=== PATIENT | female | born 1990 | race American Indian/Alaskan Native ===

== ENCOUNTER 2016-08-09 08:31 | Emergency (ER) | payer SELFPAY ==
[2016-08-09 08:38] VITALS: BP 107/74
--- NOTE | 2016-08-09 09:07 | XRay Report ---
RIGHT ANKLE RADIOGRAPHS INDICATION: Pain, swelling. Status post fall. COMPARISON: None similar at this institution. FINDINGS: AP, lateral and oblique right ankle radiographs demonstrate intact mortise, malleoli and talar dome contour. Mild diffuse soft tissue swelling questioned on the frontal view versus related to patient's body habitus. Please correlate. CONCLUSION: No acute right ankle bony abnormality, as described. Thank you for the opportunity to participate in this patient's care.
[2016-08-09] MEDS ORDERED: NORCO 5/325 PO ONE (09:17)
--- NOTE | 2016-08-09 09:21 | Emergency Department Report ---
ED Extremity Problem HPI - General Chief complaint: Extremity Injury, Lower Stated complaint: RT ANKLE PAIN Time Seen by Provider: 08/09/16 09:05 Source: patient Mode of arrival: Wheelchair Limitations: Physical Limitation - History of Present Illness Initial comments: PT states yesterday she was getting off the bus and she slipped. PT states it was raining and she slipped off the last step. PT states she landed on her feet but her legs went the wrong way. PT states she can not move her R ankle. PT states she has been hopping on her left leg. PT rates her pain 7/10 and states she has not taken anything for her pain. MD Complaint: extremity pain, joint paint -: Sudden, days(s) (yesterday ) Location: right, lower extremity (ankle) History of Same: No Severity scale (0 -10): 7 Quality: sharp Consistency: constant Improves with: rest Worsens with: weight bearing, walking, palpation Associated Symptoms: denies other symptoms - Related Data Previous Rx's Medication Instructions Recorded Last Taken Type Acetaminophen/Codeine [Tylenol #3] 1 tab PO Q6H PRN #12 tab 08/09/16 Unknown Rx Ibuprofen [Motrin] 600 mg PO Q8H PRN #15 tablet 08/09/16 Unknown Rx Allergies Allergy/AdvReac Type Severity Reaction Status Date / Time No Known Allergies Allergy Unverified 08/09/16 08:32 ED Review of Systems ROS: Stated complaint: RT ANKLE PAIN Other details as noted in HPI Comment: All other systems reviewed and negative Constitutional: denies: chills, fever Cardiovascular: denies: chest pain Gastrointestinal: denies: abdominal pain, nausea, vomiting Musculoskeletal: as per HPI, joint swelling Neurological: denies: headache ED Past Medical Hx - Past Medical History Previous Medical History?: No - Surgical History Past Surgical History?: No - Social History Smoking Status: Never Smoker Substance Use Type: None - Medications Home Medications: Home Medications Medication Instructions Recorded Confirmed Last Taken Type Acetaminophen/Codeine [Tylenol #3] 1 tab PO Q6H PRN #12 tab 08/09/16 Unknown Rx Ibuprofen [Motrin] 600 mg PO Q8H PRN #15 tablet 08/09/16 Unknown Rx ED Physical Exam - General Limitations: No Limitations General appearance: alert, in no apparent distress - Head Head exam: Present: atraumatic, normocephalic, normal inspection - Eye Eye exam: Present: normal appearance. Absent: conjunctival injection - ENT ENT exam: Present: normal exam, normal external ear exam - Neck Neck exam: Present: normal inspection, full ROM - Respiratory Respiratory exam: Absent: respiratory distress - Cardiovascular Cardiovascular Exam: Present: regular rate, normal rhythm - Extremities Exam Extremities exam: Present: normal inspection. Absent: full ROM, tenderness, joint swelling, calf tenderness - Expanded Lower Extremity Exam Right Knee exam: Present: normal inspection. Absent: tenderness Lower Leg exam: Present: normal inspection, full ROM Ankle exam: Present: normal inspection. Absent: full ROM (decreased ROM to R ankle ), tenderness, swelling, abrasion, ecchymosis, deformity, dislocation Foot/Toe exam: Present: normal inspection. Absent: tenderness, swelling Neuro vascular tendon exam: Present: no vascular compromise. Absent: pulse deficit Gait: Positive: unable to bear weight Left Ankle exam: Present: normal inspection, full ROM. Absent: tenderness Foot/Toe exam: Present: normal inspection. Absent: tenderness, swelling Neuro vascular tendon exam: Present: no vascular compromise - Back Exam Back exam: Present: normal inspection, full ROM - Neurological Exam Neurological exam: Present: alert, oriented X3. Absent: normal gait (unable to evaluate due to pt's acute R ankle injury ) - Psychiatric Psychiatric exam: Present: normal affect, normal mood - Skin Skin exam: Present: warm, dry, intact, normal color ED Course Vital Signs 08/09/16 08/09/16 08:33 09:25 Temperature 99 F Pulse Rate 86 Respiratory 18 16 Rate Blood Pressure 107/74 O2 Sat by Pulse 100 Oximetry - Reevaluation(s) Reevaluation #1: 08/09/16 09:22 PT aware of dx and plan of care. PT has no questions at this time. Reevaluation #2: 08/09/16 09:34 Nursing staff applied Velcro left splint. PT NVI. PT states decrease in pain. - Pulse Oximetry Interpretation Digit-Finger Initial Pulse Oximetry Readin Actions Taken: none ED Medical Decision Making - Radiology Data Radiology results: report reviewed, image reviewed xr - nap - Differential Diagnosis fx, contusion, sprain Critical Care Time: No Critical care attestation.: If time is entered above; I have spent that time in minutes in the direct care of this critically ill patient, excluding procedure time. ED Disposition Clinical Impression: Acute right ankle pain Disposition: TO HOME OR SELFCARE Is pt being admited?: No Does the pt Need Aspirin: No Condition: Stable Instructions: Ankle Sprain (ED), Crutch Instructions (ED), RICE Therapy (ED) Additional Instructions: No driving or ETOH after taking Tylenol #3 Prescriptions: Acetaminophen/Codeine [Tylenol #3] 1 tab PO Q6H PRN #12 tab PRN Reason: Pain , Severe (7-10) Ibuprofen [Motrin] 600 mg PO Q8H PRN #15 tablet PRN Reason: Pain Referrals: LARRY DELUCA MD [Staff Physician] - 3-5 Days CHANG CHURCHILL MD [Staff Physician] - 3-5 Days [facility] [Outside] - 3-5 Days [facility] [Outside] - 3-5 Days Forms: Work/School Release Form(ED) Time of Disposition: 09:24
== END 2016-08-09 09:48 | disposition home or self-care (01) ==
LOC: ED 08:31
DX: M25.571 Pain in right ankle and joints of right foot (principal); W01.0XXA Fall on same level from slipping, tripping and stumbling without subsequent striking against object, initial encounter; Y93.89 Activity, other specified; Y99.8 Other external cause status; Y92.811 Bus as the place of occurrence of the external cause
CPT/HCPCS: 99283